=== PATIENT | female | born 1940 | race Caucasian/White ===

== ENCOUNTER 2018-11-04 15:00 | Inpatient (IN) | payer OTHER, MEDICAID ==
[~2018-11-04] VITALS: Ht 160 cm; Wt 57.6 kg
--- NOTE | ~2018-11-04 | EEG ---
[address] [address] EEG STUDY REPORT Name: PATRICIA WONG Room: [address] IN .R#: [id number] Admission: 11/04/18 Attend Phys: Elvin Shaver MD Discharge: 11/06/18 Date of : 36 Report #: [id number] THIS REPORT FOR: //name// CC: Christian Shaver DATE OF SERVICE: 11/06/2018 This patient is being evaluated for confusion. EEG was done by placing the electrodes by standard 10-20 system of electrode placement. Both referential and sequential montages were used for recording. Background activity in this patient's EEG is about 8-9 Hz and 30 microvolt. The patient goes to sleep that is associated with bilateral slowing and vertex sharp waves. Photic stimulation is unremarkable. Throughout the record, no active epileptiform activity was noticed. EEG continued to be slow and intermixed with theta range slowing even when the patient is awake. IMPRESSION: Moderately abnormal EEG because it is intermixed with theta range slowing on both sides. That is a nonspecific abnormality, which can occur with encephalopathy, effect of psychotropic medication, dementia, etc. Clinical correlation is recommended. By: [id number] 1945Joey Murphy MD /aaron
[~2018-11-04 15:00] MED LIST: ASA81BEC PO; BAYER CHEWABLE81 MG PO; IBUPROFEN 200200 M1 PO; LIPITOR 20 MG T20 M1 PO; LISINOPRIL20 MG PO; SEROQUEL 100 M100 M1 PO; SEROQUEL 100 M100 MG PO; TOPROL XL25 MG PO; WELLBUTRIN SR150 MG PO; WELLBUTRIN XL300 MG PO; ZESTRIL40 MG PO; ZOCOR 10 MG TAB10 MG PO
[2018-11-04 15:04] VITALS: BP 163/83
[2018-11-04 15:27] LABS: ABSOLUTE BASOPHILS 0.1 thou/uL (0.0-0.2); ABSOLUTE EOSINOPHILS 0.1 thou/uL (0.0-0.7); ABSOLUTE MONOCYTES 0.6 thou/uL (0.0-1.2); ABSOLUTE NEUTROPHILS 3.7 thou/uL (1.6-8.1); BASOPHILS 1.2 %; EOSINOPHILS 1.7 %; HEMATOCRIT 41.5 % (37.0-47.0); HEMOGLOBIN 14.1 gm/dL (12.0-15.0); LYMPHOCYTES 19.1 %; MCH 32.6 pg (26.0-34.0); MONOCYTES 10.4 %; MPV 6.3 fl. (7.2-11.1); NUCLEATED RBCS 0 /100WBC; PLATELET COUNT* 175 thou/uL (150-400); POLYS 67.6 %; RBC 4.33 mil/uL (4.20-5.00); RDW-CV 14.1 % (10.5-14.5); WBC 5.5 thou/uL (4.0-11.0)
[2018-11-04 15:40] LABS: ALKALINE PHOSPHATASE 59 U/L (46-116); ANION GAP 6 mmol/L (7-16); BUN 23 mg/dL (7-18); CALCIUM 8.7 mg/dL (8.5-10.1); CHLORIDE 106 mmol/L (98-107); CO2 28 mmol/L (21-32); GLUCOSE 106 mg/dL (70-99); POTASSIUM 3.7 mmol/L (3.5-5.1); SGOT 21 U/L (15-37); SGPT 31 U/L (30-65); SODIUM 140 mmol/L (136-145); TOTAL BILIRUBIN 0.4 mg/dL (<0.1-1.0); TOTAL PROTEIN 6.8 g/dL (6.4-8.2); TROPONIN-I LEVEL <0.06 ng/mL (<0.06)
[2018-11-04 15:47] LABS: APTT 24.1 Seconds (25.0-31.3); PROTIME 10.5 Seconds (9.20-11.50)
[2018-11-04 16:41] VITALS: BP 183/63
[2018-11-04] MEDS ORDERED: ALENDRONATE SOD70 MG PO (19:36)
[2018-11-04] MEDS ORDERED: DESYREL150 MG PO (19:37)
[2018-11-04] MEDS ORDERED: NAMENDA XR28 MG PO (19:37)
[2018-11-04] MEDS ORDERED: FIBER PO (19:38)
[2018-11-04] MEDS ORDERED: OCUVITE TABLET1 EAC1 PO (19:39)
[2018-11-04] MEDS ORDERED: CALCIUM 600 +1 EAC1 PO (19:39)
[2018-11-04] MEDS ORDERED: MYRBETRIQ25 MG PO (19:42)
[2018-11-04] MEDS ORDERED: RIVASTIGMINE1 EAC1 TOP (19:43)
[2018-11-04 20:00] VITALS: BP 143/54
[2018-11-04 22:57] LABS: URINE BILIRUBIN NEGATIVE (Negative); URINE BLOOD TRACE (Negative); URINE CLARITY CLEAR; URINE COLOR YELLOW; URINE GLUCOSE-RANDOM NEGATIVE (Negative); URINE KETONES NEGATIVE (Negative); URINE LEUKOCYTES-REFLEX 1+ (Negative); URINE PROTEIN NEGATIVE (Negative); URINE SPECIFIC GRAVITY 1.015 (1.005-1.030); URINE UROBILINOGEN 0.2 E.U./dl (0.2-1.0)
[2018-11-04 22:59] LABS: URINE NITRITE-REFLEX POSITIVE (Negative)
[2018-11-05] VITALS: BP 139/60
[2018-11-05 00:05] LABS: CASTS None Seen /LPF (None Seen); SQUAMOUS 0-3 Few /LPF (0-3)
[2018-11-05 00:06] LABS: BACTERIA-REFLEX >30 Many /HPF (None Seen); CRYSTALS None Seen /LPF (None Seen); MUCUS 0-3 Light strn/LPF (None Seen); URINE RBC 0-2 Rare /HPF (0-2)
[2018-11-05 04:00] VITALS: BP 142/65
[2018-11-05 05:05] LABS: ABSOLUTE EOSINOPHILS 0.1 thou/uL (0.0-0.7); ABSOLUTE LYMPHOCYTES 1.1 thou/uL (0.8-5.3); ABSOLUTE MONOCYTES 0.4 thou/uL (0.0-1.2); ABSOLUTE NEUTROPHILS 2.4 thou/uL (1.6-8.1); BASOPHILS 1.1 %; EOSINOPHILS 2.6 %; HEMATOCRIT 36.1 % (37.0-47.0); HEMOGLOBIN 12.4 gm/dL (12.0-15.0); LYMPHOCYTES 26.7 %; MCH 32.7 pg (26.0-34.0); MCHC 34.3 g/dL (28.0-37.0); MCV 95.4 fL (80.0-100.0); MONOCYTES 10.7 %; MPV 6.5 fl. (7.2-11.1); NUCLEATED RBCS 0 /100WBC; PLATELET COUNT* 134 thou/uL (150-400); POLYS 58.9 %; RBC 3.78 mil/uL (4.20-5.00); RDW-CV 13.6 % (10.5-14.5); WBC 4.1 thou/uL (4.0-11.0)
[2018-11-05 05:32] LABS: ANION GAP 6 mmol/L (7-16); BUN 17 mg/dL (7-18); CALCIUM 8.1 mg/dL (8.5-10.1); CHLORIDE 110 mmol/L (98-107); CHOLESTEROL 122 mg/dL (<200); CO2 26 mmol/L (21-32); CREATININE 0.7 mg/dL (0.6-1.3); GLUCOSE 95 mg/dL (70-99); HDL CHOLESTEROL 72 mg/dL (>40); LDL CHOLESTEROL 43 mg/dL (<100); POTASSIUM 4.1 mmol/L (3.5-5.1); SODIUM 142 mmol/L (136-145); TC:HDL 1.7 Ratio (Not establshd); TRIGLYCERIDE 36 mg/dL (<150); VLDL 7 mg/dL (<40)
[2018-11-05 05:38] LABS: SERUM ASSESSMENT Clear
[2018-11-05 08:00] VITALS: BP 158/73
[2018-11-05 12:00] VITALS: BP 130/56
[2018-11-05 16:00] VITALS: BP 144/73
[2018-11-05 20:00] VITALS: BP 155/86
[2018-11-06] VITALS: BP 130/68
[2018-11-06 02:05] LABS: GLYCOHEMOGLOBIN (HGB A1C) 5.1 % (4.8-5.6)
[2018-11-06 03:59] VITALS: BP 141/68
[2018-11-06 04:51] LABS: CALCIUM 8.3 mg/dL (8.5-10.1); CREATININE 0.9 mg/dL (0.6-1.3); POTASSIUM 3.9 mmol/L (3.5-5.1)
[2018-11-06 08:00] VITALS: BP 174/67
--- NOTE | 2018-11-06 11:05 | EKG ---
[place] [address] ELECTROCARDIOGRAM REPORT Name: PATRICIA WONG Room: [address] ADM IN M.R.#: [id number] Admission: 11/04/18 Attend Phys: Elvin Shaver MD Discharge: Date of : 36 Report #: [id number] THIS REPORT FOR: //name// [facility] ED Test Date: 2018-11-04 Test Time: 15:15:36 Pat Name: PATRICIA CAYLAKATE Department: Room: [facility] Gender: F Behavioral Health Care Coordinator: [place] : 1940 Requested By: Shaquille Linares Order Number: [id number] MD: Giovanni Fleming Measurements Intervals [place] Rate: 71 P: 48 NV: 169 QRS: 48 QRSD: 144 T: 46 QT: 426 QTc: 463 Interpretive Statements Sinus rhythm Right bundle branch block Baseline wander in lead(s) I,II,aVR,V6 Compared to ECG 12/07/2013 10:19:00 No significant changes Electronically Signed On 11-06-2018 11:05:20 CDT by Giovanni Fleming [email or web address] <ELECTRONICALLY SIGNED> By: Giovanni Fleming MD, [facility] 11/06/18 1105 1515 1515 Giovanni Fleming MD, [facility] /EPI
[2018-11-06] MEDS ORDERED: METOPROLOL SUCC25 M1 PO (13:32)
[2018-11-06] MEDS ORDERED: AMLODIPINE BESYL5 M1 PO (13:32)
[2018-11-06] MEDS ORDERED: ATORVASTATIN CA40 MG PO (13:33)
[2018-11-06] MEDS ORDERED: BACTRIM DS TAB1 EACH PO (13:39)
[2018-11-06] MEDS ORDERED: TYLENOL325 MG PO (14:13)
[2018-11-06] MEDS ORDERED: MINOCYCLINE HC100 M2 PO (14:19)
[2018-11-06] MEDS ORDERED: AMBIEN 5 MG TABL5 M1 PO (14:20)
[2018-11-06 14:38] VITALS: BP 174/67
[2018-11-06 16:00] VITALS: BP 169/67
--- NOTE | 2018-11-06 16:51 | 2DMMODE ---
[place] [address] 2 D/M-MODE ECHOCARDIOGRAM Name: PATRICIA WONG Room: [address] IN [facility]#: [id number] Admission: 11/04/18 Attend Phys: Elvin Shaver MD Discharge: Date of : 36 Date of Service: 11/06/18 1651 Report #: [id number] THIS REPORT FOR: //name// APPROVED REPORT Study performed: 11/06/2018 13:13:32 EXAM: Comprehensive 2D, Doppler, and color-flow Echocardiogram Patient Location: In-Patient Room #: [facility] Status: routine BSA: 1.61 HR: 55 bpm BP: 174/67 mmHg Rhythm: NSR Other Information Study Quality: Good Indications CVA/TIA Echo Enhancing Agent Indication: Rule out Shunt Agent(s) / Amount(s) Used: Agitated Saline 10 cc 2D Dimensions IVSd: 7.77 (7-11mm) LVOT Diam: 22.35 (18-24mm) LVDd: 51.80 mm PWd: 8.47 (7-11mm) Ascending Ao: 35.32 (22-36mm) LVDs: 29.71 (25-40mm) Aortic Root: 31.18 mm Volumes Left Atrial Volume (Systole) LA ESV Index: 42.90 mL/m2 Aortic Valve AoV Peak Anthony.: 1.06 m/s AO Peak Gr.: 4.45 mmHg LVOT Max P.22 mmHg AO Mean Gr.: 2.71 mmHg LVOT Mean P.24 mmHg LVOT Max V: 0.90 m/s AO V2 VTI: 22.28 cm LVOT Mean V: 0.50 m/s ANTIONETTE (VTI): 3.44 cm2 LVOT V1 VTI: 19.52 [place] [address] 2 D/M-MODE ECHOCARDIOGRAM Name: PATRICIA WONG Room: [address] IN [facility]#: [id number] Admission: 11/04/18 Attend Phys: Elvin Shaver MD Discharge: Date of : 36 Date of Service: 11/06/18 1651 Report #: [id number] Mitral Valve E/A Ratio: 1.84 MV Decel. Time: 174.04 ms MV E Max Anthony.: 0.79 m/s MV PHT: 50.47 ms MVA (PHT): 4.36 cm2 TDI E/Lateral E': 7.18 E/Medial E': 7.18 Medial E' Anthony.: 0.11 m/s Lateral E' Anthony.: 0.11 m/s Pulmonary Valve PV Peak Anthony.: 0.87 m/s PV Peak Gr.: 3.05 mmHg Tricuspid Valve RAP Estimate: 5.00 mmHg TR Peak Gr.: 23.85 mmHg RVSP: 28.00 mmHg PA Pressure: 28.00 mmHg Left Ventricle The left ventricle is normal size. There is normal LV segmental wall motion. There is normal left ventricular wall thickness. Left ventricular systolic function is normal. The left ventricular ejection fraction is within the normal range. LVEF is 55%. The left ventricular diastolic function is normal. Right Ventricle The right ventricle is normal size. The right ventricular systolic function is normal. Atria Left atrium is mildly dilated. Interatrial septum is intact without evidence of ASD or PFO. The right atrium size is normal. Aortic Valve The aortic valve is normal in structure. No aortic regurgitation is present. There is no aortic valvular stenosis. Mitral Valve Moderate mitral annular calcification. Mild to moderate mitral regurgitation. No evidence of mitral valve stenosis. Tricuspid Valve The tricuspid valve is normal in structure. Mild tricuspid regurgitation[place] [address] 2 D/M-MODE ECHOCARDIOGRAM Name: PATRICIA WONG Room: [address] IN [facility]#: [id number] Admission: 11/04/18 Attend Phys: Elvin Shaver MD Discharge: Date of : 36 Date of Service: 11/06/18 1651 Report #: [id number] Pulmonic Valve The pulmonary valve is normal in structure. Mild pulmonic regurgitation. Great Vessels The aortic root is normal in size. IVC is normal in size and collapses >50% with inspiration. Pericardium There is no pericardial effusion. <Conclusion> The left ventricle is normal size. There is normal left ventricular wall thickness. Left ventricular systolic function is normal. The left ventricular ejection fraction is within the normal range. LVEF is 55%. The left ventricular diastolic function is normal. The right ventricle is normal size. Left atrium is mildly dilated. The right atrium size is normal. The aortic valve is normal in structure. Moderate mitral annular calcification. Mild to moderate mitral regurgitation. No evidence of mitral valve stenosis. The tricuspid valve is normal in structure. Mild tricuspid regurgitation. No pulmonary hypertension. IVC is normal in size and collapses >50% with inspiration. There is no pericardial effusion. There is normal LV segmental wall motion. Interatrial septum is intact without evidence of ASD or PFO. <ELECTRONICALLY SIGNED> By: Giovanni Fleming MD, FACC 11/06/181650 50 50 Giovanni Fleming MD, FACC /INF
== END 2018-11-06 17:46 | disposition home or self-care (01) | DRG 689 ==
LOC: M.ERS 15:00 → M.TBA-ER 15:42 → M.2W 15:42
PROVIDERS: Family Medicine; ADMIT Family Medicine
DX: N39.0 Urinary tract infection, site not specified (principal); G93.41 Metabolic encephalopathy; G45.9 Transient cerebral ischemic attack, unspecified; I25.10 Atherosclerotic heart disease of native coronary artery without angina pectoris; I12.9 Hypertensive chronic kidney disease with stage 1 through stage 4 chronic kidney disease, or unspecified chronic kidney disease; N18.3 Chronic kidney disease, stage 3 (moderate); F03.90 Unspecified dementia, unspecified severity, without behavioral disturbance, psychotic disturbance, mood disturbance, and anxiety; Z95.1 Presence of aortocoronary bypass graft; Z79.1 Long term (current) use of non-steroidal anti-inflammatories (NSAID); Z79.82 Long term (current) use of aspirin; Z79.899 Other long term (current) drug therapy